=== PATIENT | female | born 1955 | race Caucasian/White ===

== ENCOUNTER 2017-09-25 15:00 | Outpatient (RCR) | payer OTHER, SELFPAY ==
--- NOTE | 2017-07-25 09:23 | HP.OTEVAL ---
Patient's Visit Information GIBSON SOTOMAYOR is a 61 year old F, referred to Occupational Therapy by HEATH GASPAR, with a diagnosis of proximal row carpectomy and PIN neurectomy R wrist. Date of Evaluation: 07/25/17 Occupational Therapist: Yenny Sahu - Subjective Subjective: Genoveva arrived and noted that she had ligament damage from injury March. She noted fell in March after tripping over grandson. She noted just throughout it was bruise waited to May to go in. In May found ligament damage and casted. She noted in June 20 had carpectomy proximal row. - Pain Right Wrist 2 Pain Intensity Range: 1, 9, 10 - ROM Forearm: suoination R 0-56, L WNL Wrist: flexion R 0-30, L 0-98; ext R 0-16, L 0-54 MP: 2nd 27-69, 3rd 34-76, 4th 24-78, 5th 21-85; L WNL PIP: 2nd -10-80, 3rd -18 -83, 4th -7-82, 5th -22-73; L WNL DIP: 2nd 0-57, 3rd 0-64, 4th -2-54, 5th -5-73; L WNL ROM Comments: radial dev R 0-5, L 0-25; uln dev R 0-17, L 0-31 - Strength Die Repairer Trimmer Dies: R 5, L 44 Lateral Pinch: R 4, L 11 Tripod Pinch: R unable L 11 Tip-to-Tip Pinch: R unable L 6 - Edema Other: slight edema t/o hand unable to see Metacarpals - Sensation Sensation Comments: sensations WFL. Denies numbness or tingling. Increased sensitivity over dorsum of hand. Further testing to occur. Sock provided to wear with splint to try and decrease rubbing which she noted is very uncomfortable over proximal and distal dorsal scar areas only. Notes scar is not very sensitivity at this time. - In-Hand Manipulation Finger to Palm Translation: Severe - Right, Normal - Left Palm to Finger Translation: Severe - Right, Normal - Left Shift: Moderate - Right, Severe - Right, Normal - Left Rotation: Moderate - Right, Severe - Right, Normal - Left - DASH-Disabilities of Arm, Shoulder& Hand DASH Sum: 121 - Goals Goal:: Genoveva to increase R premium note interest calculator clerk to about 80% or within 20 lbs of L premium note interest calculator clerk to promote increased strength, stability and fx use of R wrist and hand to return to PLOF by d/c. Goal:: Genoveva to increase R wrist ROM by 10-20 degrees to promote increased fx ROM to promote increased ability to manipulate wrist and complete ADL/IADls 4/5 trials 80% of the time by d/c. Goal:: Genoveva to have no more of 1/10 pain with/without brace (when appropriate) 4/5 trials 80% of the time to promote increased use fo R dominant ahnd to return to PLOF by d/c. Goal:: Genoveva to be mod I to complete edema management program of R wrist and hand to decreased swellign and promote ROM 4/5 trials 80% of the time of the time to promote ROM by time of d/c. Goal:: Genoveva to be mod I to complete desensitization protocol to promote increased ability to tolerate various textures e.g clothing over scar and dorsum wrist and hand without painful stimuli 4/5 trials 80% of the time to promote returning to PLOF by d/c. Goal:: Genoveva to complete correct wirst body emchanics and joint protection to promote increased alignment, decreased risk of further injury, and decreased risk of pain 4/5 trials 80% of the time by d/c. Goal:: Genoveva to be (i) to return to all ADl/IADLs including gardening technqiues 4/5 trials 80% of the time to promote ability to fx use had at PLOF by d/c. - Rehabilitation General Assessment: Pt., Genoveva, is s/p proximal row carpectomy and posterior interosseous nervectomy June. Carpectomy s/p fall resulting in ligament damage and resulting in increased pain. She noted pain has significantly decreased decreased since carpectomy but still has pain in wrist due to surgery and healing. ROM and strength significantly limited at this time. OT to address to promote returning to ADl/IADls at PLOF, increasing ROM, strength, edema management, and decreased sensitivity. Rehabilitation Potential: Good - Anticipated Interventions Anticipated Interventions: Early Active Motion, A/AAROM/PROM, Strengthening, Edema Control, Scar Care, Desensitization, Wound Care, Modalities, Orthoses, Joint Protection/Energy Conservation, Ergonomic Education, Fine Motor Coord/Luis Carlos, ADL Training, Caregiver Training, Home Program - Visit Plan Frequency: 2-3x /Week Duration: 6 Weeks TEXT: Thank you for the opportunity to evaluate your patient. For Medicare and Medicare HMO plans, please review the plan of care and approve it. It will need to be FAXED BACK to us at [phone] for Medicare purposes. Please let me know if there are questions or concerns regarding this plan of care. Physician Signature: Date:
--- NOTE | 2017-08-28 13:01 | HP.OTCOM ---
OT Communication Note 08/28/[address] HEATH GASPAR Genoveva has been diligent on attending OT sessions. She has progressed with all measurements since initial evaluation. New measurements taken and are as follows: ROM R wrist and hand flexion 0-48, ext 0-25, supination 0-60, radial dev 0-10, ulnar deviation 0-21. R hand ROM MCP 2-5th: 18-77, 28-86, 22-84, 21-89; PIP 2-5th 0-88, 0-90, 0-90, -17-92; DIP 2-5th 0-47, 0-60, 0-59, -4-80. Strength measurements are as follows: office agent R 15, L 52; lateral R 11, L 11; tripod R 6, L 15; tip pinch R 4, L 9 lbs. 9-hole pegboard test R 20.53 s, L 18.36 s. She has progressed in all measurements. Pain is manageable but still variable at this time. She is to continue to wear brace for support during work days and when lifting as strength is not able to support wrist adequately at this time. Strength is still very weak and OT working on increasing fx strength to promote stability of R UE as well as wrist and hand through individualized program in clinic and HEP for ADL/IADls. Genoveva is starting to show signs of Dupuytrens contractures at 3rd, 4th and 5th fingers. Please assess and address as needed. Sincerely, Yenny Sahu. OTR/L Contact Information
--- NOTE | 2017-09-14 17:00 | HP.OTREVAL ---
HEATH GASPAR, It has been my pleasure to treat GIBSON SOTOMAYOR over the last 17 visits for proximal row carpectomy and PIN neurectomy R wrist. Please see the progress note below for an update on the occupational therapy plan of care! Subjective: Pt. reports working taking more time as expected but going well. Noted wrist on up and up. Noted completed week of writing and slower but no pain from activities. Notes weakness is still majory issue. Objective/Function: Reassessment completed on this date. She has continued to progress with most ROM and all strengthening tasks since reassessment 08/28/17. ROM measurements are as follows: wrist flexion R 0-51, L WNL; ext R 0-29, L WFL; supination 0-63, L WNL, pronation R0-83, L WFL; R MCP 2-5th digits 23-83, 32-93, 18-94, and 20-96; PIP 2-5th 0-87, 0-89, 0-94, -18-86. Strength assessment is as follows: front office specialist R 21, L 55 lbs, lateral R 10, L 14, tripod R 6, L 17 lbs, tip pinch R 4, L 9 lbs. Completed 9 hole pegboard test with R hand in 18.62 s , L 16.49 s. Previous measurements: Measurments are as follows: ROM R wrist and hand flexion 0-48, ext 0-25, supination 0-60, radial dev 0-10, ulnar deviation 0-21. R hand ROM MCP 2-5th: 18-77, 28-86, 22-84, 21-89; PIP 2-5th 0-88, 0-90, 0-90, -17-92; DIP 2-5th 0-47, 0-60, 0-59, -4-80. Strength measurements are as follows: front office specialist R 15, L 52; lateral R 11, L 11; tripod R 6, L 15; tip pinch R 4, L 9 lbs. 9 hole pegboard test R20.53 s, L 18.36 s. Genoveva has progressed in all strengthening tasks and will continue OT at this time. Plan Frequency: 2x /Week Duration: 3 Weeks Plan: continue POC. Continue with scheduled appointments to end of september to complete strengthening. She has continued to progress with all strength and ROM tasks at this time. She will continue 2xweekly appointments for next 3 weeks. Goals - Goals Goal:: Genoveva to increase R front office specialist to about 80% or within 20 lbs of L front office specialist to promote increased strength, stability and fx use of R wrist and hand to return to PLOF by d/c. Goal:: Genoveva to increase R wrist ROM by 10-20 degrees to promote increased fx ROM to promote increased ability to manipulate wrist and complete ADL/IADls 4/5 trials 80% of the time by d/c. Goal:: Genoveva to have no more of 1/10 pain with/without brace (when appropriate) 4/5 trials 80% of the time to promote increased use fo R dominant ahnd to return to PLOF by d/c. Goal:: Genoveva to be mod I to complete edema management program of R wrist and hand to decreased swellign and promote ROM 4/5 trials 80% of the time of the time to promote ROM by time of d/c. Goal:: Genoveva to be mod I to complete desensitization protocol to promote increased ability to tolerate various textures e.g clothing over scar and dorsum wrist and hand without painful stimuli 4/5 trials 80% of the time to promote returning to PLOF by d/c. Goal:: Genoveva to complete correct wirst body emchanics and joint protection to promote increased alignment, decreased risk of further injury, and decreased risk of pain 4/5 trials 80% of the time by d/c. Goal:: Genoveva to be (i) to return to all ADl/IADLs including gardening technqiues 4/5 trials 80% of the time to promote ability to fx use had at PLOF by d/c. Anticipated Interventions Anticipated Interventions: Early Active Motion, A/AAROM/PROM, Strengthening, Edema Control, Scar Care, Desensitization, Wound Care, Modalities, Orthoses, Joint Protection/Energy Conservation, Ergonomic Education, Fine Motor Coord/Luis Carlos, ADL Training, Caregiver Training, Home Program Please do not hesitate to contact me at [phone] by phone or if you have questions or concerns regarding this new plan of care! Sincerely, Yneny Sahu
--- NOTE | 2017-10-26 14:26 | HP.OTDCNRP_ITS ---
HP - Discharge Summary - Patient Information GIBSON SOTOMAYOR was seen in my office for initial evaluation on 07/25/17. The following Plan of Care was established for this patient: Initial Frequency: 2x /Week Initial Duration: 3 Weeks Plan: continue POC for 3x sessions. - Anticipated Interventions Anticipated Interventions: Early Active Motion, A/AAROM/PROM, Strengthening, Edema Control, Scar Care, Desensitization, Wound Care, Modalities, Orthoses, Joint Protection/Energy Conservation, Ergonomic Education, Fine Motor Coord/ Luis Carlos, ADL Training, Caregiver Training, Home Program This patient was last seen in our office 09/25/17. Pertinent comments regarding their Occupational therapy will appear below: Genoveva was to continue 3 x more sessions but canceled due to scheduling conflicts and she will be d/c'd at this time. Last measurements taken 09/25 are as follows:ROM of R wrist R flexion R 0-54, L WFL; ext R 0-27, L WFL; sup R 0-57 , L WFL; pro R 0-80, L WFL. Strength measurements as follows: manager application R 19, L WFL; lateral R 7, L WFL: tripod R 5, L WFL: pincer R 4, L WFL. At this point I will be discontinuing this patient from occupational therapy. I would be happy to see this patient again in the future if found appropriate by the physician. Thank you! Yenny Sahu
== END 2017-09-25 19:00 | disposition home or self-care (01) ==
LOC: OT 15:00
DX: M25.331 Other instability, right wrist (principal); Z98.890 Other specified postprocedural states
CPT/HCPCS: 97035; 97110; 97140; 97166; 97530; 97760

== ENCOUNTER 2018-09-12 22:32 | Inpatient (IN) | payer MEDICARE, OTHER, SELFPAY ==
[2018-09-12 22:34] VITALS: BP 218/118; PULSE 72; RESP 18; TEMP 36.8; O2SAT 97; BMI 41.3
--- NOTE | 2018-09-12 23:13 | CT_ITS ---
HISTORY: RT SIDED LOW ABDOMEN PAIN,NAUSEA AND VOMITING SINCE YESTERDAYHX:DIVERTICULITIS,APPENDECTOMY,CHOLECYSTECTOMY,HYSTERECTOMY ADDITIONAL HISTORY: None provided. TECHNIQUE: CT images were obtained of the abdomen and pelvis without IV contrast. Enteric contrast was not given. Number of images including paperwork: 530. A radiation dose optimization technique was used for this scan. COMPARISON: 11/02/2012 FINDINGS: Evaluation of the abdominopelvic organs is limited in the absence of contrast. LOWER THORAX: No consolidation or pleural effusion. Small sliding hiatal hernia. LIVER: No concerning focal lesion. Decreased hepatic density compatible with steatosis. GALLBLADDER: Cholecystectomy. BILE DUCTS: No significant biliary dilatation. SPLEEN: Unremarkable. PANCREAS: 2.1 cm low density lesion in the pancreatic head. Pancreas is otherwise moderately to severely atrophic. This is not a evidence on the previous exam. ADRENAL GLANDS: Unremarkable. KIDNEYS/URETERS: Mildly atrophic. Parapelvic renal cysts. Mild right hydronephrosis secondary to a 2 mm distal ureteral calculus within 1 cm of the ureterovesical junction. 1-2 mm nonobstructing left renal calculus. BOWEL: No bowel obstruction. No significant bowel wall thickening. No localized inflammation. Colonic diverticulosis. APPENDIX: No evidence of appendicitis. FREE FLUID: No significant free fluid. FREE AIR: None. LYMPH NODES: No pathologic appearing adenopathy. PERITONEUM, RETROPERITONEUM AND MESENTERY: Otherwise unremarkable. VASCULATURE: Atherosclerotic calcification. ABDOMINAL WALL: Unremarkable. PELVIS: Decompressed bladder. Hysterectomy. No pelvic masses. OSSEOUS AND SOFT TISSUE STRUCTURES: No acute skeletal findings. Degenerative changes. CT/Abdomen/Pelvis without Cont IMPRESSION: 1. Obstructing right distal ureteral calculus with mild hydronephrosis. 2. Left renal calculus. 3. Low-density lesion in the pancreatic head may be related to cystic neoplasm, pseudocyst or cyst. Individualized dose optimization techniques were used for this CT. at 0015 Reported and signed by: Milana Knapp MD Electronically Signed: Milana Knapp MD at 0:15 EDT Tel , Service support ,
--- NOTE | 2018-09-12 23:16 | ED.DCSUM_ITS ---
History of Present Illness Chief Complaint: Abd Pain Informant: Patient Onset: Yesterday Narrative: Intermittent right-sided abdominal pain since yesterday afternoon. Symptoms returned this afternoon has progressed. Nausea vomiting x5 with no hematemesis. No diarrhea. No urinary symptoms. History of appendectomy and cholecystectomy. Reports similar symptoms with diverticulitis 4 years ago. She had a follow-up colonoscopy by Dr. Putnam reporting diverticulosis and one polypectomy. Reports it was benign. Currently nauseated. Allergies to clarithromycin sulfa both causing hives. History of hypertension on medications, no missed doses. No headache, visual changes, chest pains or shortness of breath. Prior similar symptoms: Yes Past Medical History - Allergies and Home Meds Allergies/Adverse Reactions: Allergies clarithromycin [From Biaxin] Allergy (Verified 09/12/18 22:36) Hives Sulfa (Sulfonamide Antibiotics) Allergy (Verified 09/12/18 22:36) Hives Primary Care Physician: Erickson Khalil MD [Primary Care Provider] - Smoking Status: Never smoker Review of Systems General: Reports: Chills. Denies: Fever, Sweats Eyes: Denies: Visual changes - bilaterally, Diplopia ENT: Denies: Rhinorrhea, Sore throat Cardiovascular: Denies: Chest pain, Palpitations Respiratory: Denies: Dyspnea, Cough, Dyspnea on exertion Gastrointestinal: Reports: Abdominal pain, Nausea, Vomiting. Denies: Diarrhea, Melena, Hematochezia Genitourinary: Denies: Dysuria, Hematuria, Frequency Musculoskeletal: Denies: Back pain, Extremity Pain Skin: Denies: Rash, Wounds Neurological: Denies: Headache, Weakness, Numbness Physical Exam Vital Signs/Narrative: Vital Signs Temp Pulse Resp BP Pulse Ox 09/12/18 22:34 98.2 F 72 18 218/118 H 97 Inital Vital Signs reviewed: Yes General: Well nourished, Well developed, No Acute Distress Head: Normocephalic, Atraumatic Eyes: Perrl, EOMI ENT: Moist mucous membranes, No rhinorrhea Neck: Supple, Nontender Cardiovascular: Regular rate, Regular rhythm, No murmurs Respiratory: No distress, CTA bilaterally, Chest nontender Abdomen: Soft, Nondistended, Normal bowel sounds, - - Mild right lower quadrant tenderness without guarding or rebound. No suprapubic or left lower quadrant tenderness. Back: Nontender, Normal Inspection Extremities: Nontender, No edema Skin: Normal color, No rash Neurological: Alert, Oriented x3, Cranial nerves II-XII grossly intact, Normal Strength, Normal Sensation Psychological: Normal affect, Normal Mood Diagnostic/Tx/Re-eval Abnormal Lab Results 09/12/18 09/12/18 09/13/18 23:25 23:25 00:35 WBC 5.8 RBC 4.39 Hgb 13.0 Hct 39.3 MCV 89.5 MCH 29.6 MCHC 33.1 RDW Std Deviation 48.0 H RDW Coeff of Matheus 14.6 Plt Count 217 MPV 9.1 Immature Gran % (Auto) 0.700 Neut % (Auto) 65.4 Lymph % (Auto) 19.9 [place] % (Auto) 9.5 Eos % (Auto) 3.6 Baso % (Auto) 0.9 Absolute Neuts (auto) 3.8 Absolute Lymphs (auto) 1.16 Nucleated RBC % 0 Sodium 141 Potassium 4.0 Chloride 109 H Carbon Dioxide 26.0 Anion Gap 6 BUN 26 H Creatinine 1.61 H Estim Creat Clear Calc 36.89 Est GFR (MDRD) Af Amer 41 L Est GFR (MDRD) Non-Af 34 L BUN/Creatinine Ratio 16.1 Glucose 125 H Calcium 8.9 Urine Color Yellow Urine Clarity Sl. Cloudy Urine pH 6.0 Ur Specific [place] 1.025 Urine Protein 30 H Urine Glucose (UA) Normal Urine Ketones 5 H Urine Occult Blood 150 H Urine Nitrite Positive H Urine Bilirubin Negative Urine Urobilinogen Normal Ur Leukocyte Esterase 500 H Urine RBC Cancelled Urine WBC Cancelled Ur Squamous Epith Cells Cancelled Ur Transition Epith Cell Cancelled Ur Renal Epithelial Cell Cancelled Calcium Oxalate Crystal Cancelled Uric Acid Crystals Cancelled Triple Phos Crystals Cancelled Other Crystals Cancelled Amorphous Sediment Cancelled Urine Bacteria Cancelled Hyaline Casts Cancelled Fine Granular Casts Cancelled Coarse Granular Casts Cancelled Waxy Casts Cancelled RBC Casts Cancelled WBC Casts Cancelled Urine Mucus Cancelled Urine Trichomonas Cancelled Urine Yeast Cancelled Clinical Impression(s) from Imaging Studies Abdomen/Pelvis CT 09/12/18 23:13 IMPRESSION: 1. Obstructing right distal ureteral calculus with mild hydronephrosis. 2. Left renal calculus. 3. Low-density lesion in the pancreatic head may be related to cystic neoplasm, pseudocyst or cyst. Individualized dose optimization techniques were used for this CT. at 0015 Reported and signed by: Milana Knapp MD Electronically Signed: Milana Knapp MD at 0:15 EDT Tel , Service support , - Medical Decision Making Patient initial elevated blood pressure no headache symptoms no chest pains or shortness of breath. She is a nonsurgical abdomen, right lower quadrant tenderness with history of diverticulitis. Work-up initiated. Treated with initial morphine, Zofran, IV fluids. Additional morphine required in the interim due to reporting initial dose did not work. Work-up with findings with no colitis however notes of 2 mm right distal obstructing ureteral stone. Urine was added with findings of infection. Culture sent started on Rocephin. White count normal. Creatinine up to 1.6, previously 1.1 from labs from 2012. Evaluation pain returned with dose with Dilaudid 1 mg along with Phenergan 6.25 mg and continue IV fluids. Nontoxic blood pressure is stable. She does not meet sepsis criteria. I spoke with on-call urologist Dr. Alston, will admit to her service keeping n.p.o. for possible intervention in the morning. Patient updated. ED Disposition - Plan for ED Patient: Disposition: Acute Care Hospital [facility] Diagnosis: Urolithiasis, Urinary tract infection, Acute kidney injury Referrals: Erickson Khalil MD [Primary Care Provider] -
[2018-09-12 23:27] VITALS: BP 150/64
[2018-09-12] MEDS: Morphine 4 MG/ML Syringe IV (23:27)
[2018-09-12] MEDS: Ondansetron 4 MG/2 ML Vial IV (23:28)
[2018-09-12 23:31] LABS: Absolute Lymphocyte Count 1.16 X10^3/uL (0.83-4.51); Absolute Neutrophil Count 3.8 X10^3/uL (2.0-7.7); Basophil# 0.05 X10^3/uL; Basophil% 0.9 % (0-1); Eosinophil# 0.21 X10^3/uL; Eosinophils% 3.6 % (0-5); Hematocrit 39.3 % (37-47); Lymphocyte # 1.16 X10^3/ul (4.0); Lymphocyte % 19.9 % (19-41); Mean Corp Hgb Conc 33.1 g/dL (32-36); Mean Corpuscular Hgb 29.6 pg (27.0-32.0); Mean Corpuscular Volume 89.5 fL (81-99); Mean Platelet Vol. 9.1 fl (6.2-12.0); Monocyte# 0.55 X10^3/uL; Monocyte% 9.5 % (0-10); NRBC Flagged by Analyzer 0 % (0-5); Neutrophil # 3.81 X10^3/uL (2.7-7.7); Neutrophil % 65.4 % (47-70); Platelet Count 217 K/mm3 (150-450); RBC Distribution Width CV 14.6 % (11.6-14.6); Red Blood Count 4.39 M/mm3 (4.2-5.4); White Blood Count 5.8 K/mm3 (4.4-11.0)
[2018-09-12 23:43] LABS: Anion Gap 6 (5-15); BUN 26 mg/dL (7-18); BUN/Creat Ratio 16.1 RATIO (10-20); Calcium,Total 8.9 mg/dL (8.5-10.1); Chloride 109 mmol/L (98-107); Creatinine, Serum 1.61 mg/dL (0.55-1.02); EST Glomerular Filtration Rate 34 mL/min (>60); Est Glom Filt Rate - Afr Amer 41 mL/min (>60); Estimated Creatinine Clearance 36.89 ml/min; Glucose 125 mg/dL (74-106); Sodium Level 141 mmol/L (136-145)
[2018-09-13] VITALS (8 sets, daily range): BP systolic 104–158; BP diastolic 49–73; PULSE 65–82; RESP 16–18; TEMP 36.5–37.2; O2SAT 95–99; BMI 36.0
[2018-09-13] MEDS: morphine 10 MG/ML Syringe IV (00:04)
--- NOTE | 2018-09-13 00:43 | ED.RN ---
very small amount of urine sent to lab. pt not sure if she is retaining or no urine.
[2018-09-13 00:49] LABS: Color, Urine Yellow (Yellow); Glucose, Dipstick Normal (Normal); Ketone-Dipstick 5 mg/dl (Negative); Leukocyte Esterase-Dipstick 500 /ul (Negative); Nitrite-Dipstick Positive (Negative); Occult Blood-Urine 150 /ul (Negative); Protein-Dipstick 30 mg/dl (Negative); Specific Gravity, Urine 1.025 (1.002-1.030); Urine Bilirubin Dipstick Negative (Negative); Urine Clarity Sl. Cloudy (Clear); Urine Urobilinogen Normal (Normal)
[2018-09-13] MEDS: proMETHazine 25 MG/ML Syringe 6.25 MG IV (01:28)
[2018-09-13] MEDS: HYDROmorphone 1 MG/ML Syringe IV (01:31)
[2018-09-13] MEDS: 0.9% Normal Saline 1,000 ML 999 ML IV (01:31)
[2018-09-13] MEDS: Ceftriaxone 1 GM/50 ML BAG IV (01:45)
[2018-09-13] MEDS: Dext 5%-0.45% NS 1,000 ML 125 ML IV ×3 (03:00→20:08)
[2018-09-13] MEDS: Tamsulosin HCl 0.4 MG Capsule PO ×2 (03:01→16:37)
[2018-09-13] MEDS: HYDROmorphone 0.5 MG/0.5 ML SYRINGE IV ×3 (07:39→16:34)
[2018-09-13] MEDS: Ondansetron 4 MG/2 ML Vial IV ×2 (07:39→16:34)
[2018-09-13] MEDS: Metoprolol(XL)Succ 100 MG Tablet PO (07:42)
--- NOTE | 2018-09-13 15:53 | PCM.HP.STD ---
Problem List (1) Pancreatic abnormality Status: Acute (2) Nausea & vomiting Status: Acute (3) Urolithiasis Status: Acute (4) Urinary tract infection Status: Acute (5) Acute kidney injury Status: Acute History of Present Illness Date of Admission: 09/13/18 Chief Complaint: nausea, vomiting, abdominal pain The patient is a 62 year old F who reports approximately 5 days of nausea and intermittent vomiting at home. It worsened yesterday afternoon and caused her to present to the emergency department. This is not been associated with fever, chills, flank pain, lower urinary tract symptoms including dysuria, hematuria increased urgency, frequency, retention. She does not have a history of urolithiasis. She has had a cholecystectomy in the past. She was concerned that the pain she experienced which is in the center of her abdomen down into the right lower quadrant might be related to diverticulitis that she has had in the past. Since admission, her pain continues. Her nausea continues. She denies diarrhea, constipation, lower extremity pain or swelling. She denies voiding complaints today. Past Medical History Medical History: Medical History (Last Reviewed 09/13/18 @ 15:56 by Faye Alston MD) Hypercholesteremia (Acute) E78.00 Overactive bladder (Acute) N32.81 Hypertension (Chronic) I10 Allergies clarithromycin [From Biaxin] Allergy (Verified 09/12/18 22:36) Hives Sulfa (Sulfonamide Antibiotics) Allergy (Verified 09/12/18 22:36) Hives Home Medications: Ambulatory Orders Medication Instructions Recorded Fluoxetine HCl [Prozac] 20 mg PO DAILY 09/12/18 Losartan/Hydrochlorothiazide 1 ea PO DAILY 09/12/18 [Losartan-Hctz 50-12.5 mg Tab] Metoprolol Succinate [Toprol Xl] 100 mg PO DAILY 09/12/18 Oxybutynin Chloride [Ditropan Xl] 10 mg PO DAILY 09/12/18 Surgical History: appendectomy, cholecystectomy, hysterectomy, total knee arthroplasty, - - wrist surgery [employer] History: - - no history cancers Lives: Spouse/ Significant Other Smoking Status: Never smoker Review of Systems Constitutional: Reports: Anorexia Eyes: Denies: Vision Change HEENT: Denies: Visual Changes Cardiovascular: Denies: Chest Pain Respiratory: Denies: Shortness of Breath Gastrointestinal: Reports: Abdominal Pain, Nausea, Vomiting Gynecological: Denies: Breast symptoms Musculoskeletal: Denies: Muscle pain Endocrine: Denies: Change in Body Habitus VTE Information - Inpt Only VTE Present on Admission: Yes VTE Mechan Device Prophylaxis: SCD's VTE Pharm Prophylaxis ordered?: Yes Patient Problems: Active and Suspected Problems Urolithiasis (Acute) Urinary tract infection (Acute) Acute kidney injury (Acute) Pancreatic abnormality (Acute) Nausea & vomiting (Acute) - Physical Exam General: Alert, Oriented x3, Cooperative, Well developed, Well nourished HEENT: Atraumatic, Normocephalic Oral: Dry Mucosa Neck: Supple, Trachea Midline Lungs: Normal air movement Cardiovascular: Regular rate Abdomen: Soft, Non-Distended, Obese, Tender Extremities: No Calf Tenderness, - - SCD's in place Skin: No rashes Musculoskeletal: No Muscle Wasting Neurological: Cranial nerves II-XII grossly intact Psych/Mental Status: Normal Affect, Alert and oriented to time, place, person, mood and affect Vital Signs Temp Pulse Resp BP Pulse Ox 98.6 F 82 16 105/49 L 97 09/13/18 14:47 09/13/18 14:47 09/13/18 14:47 09/13/18 14:47 09/13/18 14:47 Oxygen Delivery Method Room Air Weight: 110.7 kg Body Mass Index (BMI) 36.0 Intake and Output for Last 24 Hours 09/11/18 09/12/18 09/13/18 23:59 23:59 23:59 Intake Total 1069 / 1069 Output Total 100 / 100 Balance 969 / 969 Laboratory Tests Past 24 Hrs 09/12/18 09/12/18 09/13/18 23:25 23:25 00:35 WBC 5.8 RBC 4.39 Hgb 13.0 Hct 39.3 MCV 89.5 MCH 29.6 MCHC 33.1 RDW Std Deviation 48.0 H RDW Coeff of Matheus 14.6 Plt Count 217 MPV 9.1 Immature Gran % (Auto) 0.700 Neut % (Auto) 65.4 Lymph % (Auto) 19.9 [place] % (Auto) 9.5 Eos % (Auto) 3.6 Baso % (Auto) 0.9 Absolute Neuts (auto) 3.8 Absolute Lymphs (auto) 1.16 Nucleated RBC % 0 Sodium 141 Potassium 4.0 Chloride 109 H Carbon Dioxide 26.0 Anion Gap 6 BUN 26 H Creatinine 1.61 H Estim Creat Clear Calc 36.89 Est GFR (MDRD) Af Amer 41 L Est GFR (MDRD) Non-Af 34 L BUN/Creatinine Ratio 16.1 Glucose 125 H Calcium 8.9 Urine Color Yellow Urine Clarity Sl. Cloudy Urine pH 6.0 Ur Specific [place] 1.025 Urine Protein 30 H Urine Glucose (UA) Normal Urine Ketones 5 H Urine Occult Blood 150 H Urine Nitrite Positive H Urine Bilirubin Negative Urine Urobilinogen Normal Ur Leukocyte Esterase 500 H Urine RBC Cancelled Urine WBC Cancelled Ur Squamous Epith Cells Cancelled Ur Transition Epith Cell Cancelled Ur Renal Epithelial Cell Cancelled Calcium Oxalate Crystal Cancelled Uric Acid Crystals Cancelled Triple Phos Crystals Cancelled Other Crystals Cancelled Amorphous Sediment Cancelled Urine Bacteria Cancelled Hyaline Casts Cancelled Fine Granular Casts Cancelled Coarse Granular Casts Cancelled Waxy Casts Cancelled RBC Casts Cancelled WBC Casts Cancelled Urine Mucus Cancelled Urine Trichomonas Cancelled Urine Yeast Cancelled Assessment/Plan All Active Problems Urolithiasis (Acute) Urinary tract infection (Acute) Acute kidney injury (Acute) Pancreatic abnormality (Acute) Nausea & vomiting (Acute) I spoke with the patient and have already called and consulted the hospitalist group and spoke with Dr. Chávez. I am concerned after reviewing her imaging and the report from the CT scan, in addition to examining and speaking with the patient. I feel that her findings may more likely be attributed to the issues with her pancreas than to a ureteral calculus. LFTs, amylase, lipase, am labs Further imaging of the abdomen, including possible MRI to be ordered per medicine or program evaluation consultant team Continue intravenous fluid administration Pain and nausea control, switch to Phenergan Will follow up on urine culture and continue antibiotics until that has returned Continue Flomax for now. Appreciate program evaluation consultant input.
--- NOTE | 2018-09-13 16:15 | PN_ITS ---
Patient Problems: Active and Suspected Problems (Last Reviewed 09/13/18 @ 15:56 by Faye Alston MD) Urolithiasis (Acute) Urinary tract infection (Acute) Acute kidney injury (Acute) Pancreatic abnormality (Acute) Nausea & vomiting (Acute) Hypercholesteremia (Acute) Overactive bladder (Acute) Subjective: Patient is a 62-year-old female who was admitted through the ED in the early hours of 09/13/2018 with a complaint of 5-day history of nausea and intermittent vomiting at home with associated right lower quadrant pain. She described pain is very severe and that was similar to when she had diverticulitis. She denied any fever, any chills, any frequency of urination, urgency or dysuria. She also had no nausea, vomiting or diarrhea. She has never had any kidney stones before. She was admitted to the service of urology on account of suspicion of kidney stones. She was reviewed by urology today and they felt that she did not have any significant kidney stones to be causing symptoms. Hospitalist service was consulted to help with medical management on account of CT of the abdomen which showed a suspicious lesion in the pancreas. Patient seen and examined. She had no complaints. Abdominal pain had resolved. She denied any fever, any chills, any palpitations or dizziness, any chest pain, any diarrhea or vomiting. Abdominal pain had not recurred. Review of systems was otherwise negative. She denies any history of ever smoking or drinking. Vitals/I&O's: Vital Signs Temp Pulse Resp BP Pulse Ox 98.6 F 82 16 105/49 L 97 09/13/18 14:47 09/13/18 14:47 09/13/18 14:47 09/13/18 14:47 09/13/18 14:47 Oxygen Delivery Method Room Air Weight: 244 lb 0.827 oz Body Mass Index (BMI) 36.0 Intake and Output for Last 24 Hours 09/11/18 09/12/18 09/13/18 23:59 23:59 23:59 Intake Total 1069 / 1069 Output Total 100 / 100 Balance 969 / 969 General: Alert, Oriented x3, Cooperative, No apparent distress HEENT: Atraumatic, PERRLA, EOMI, Normocephalic Oral: Moist Mucosa Neck: Supple, No JVD, Negative Carotid Bruits Lungs: Clear to auscultation, Normal air movement, No rhonchi, No wheeze Cardiovascular: Regular rate, Regular Rhythm, Normal S1, Normal S2, No murmurs Abdomen: Bowel Sounds Present, Soft, Non Tender, Obese Extremities: No clubbing, No cyanosis, No edema, Capillary Refill Less than 3 Seconds Skin: No rashes, No breakdown Musculoskeletal: No Tenderness to Palpation of Joints or Extremities Lymphatic: No Cervical, Supraclavicular, or Inguinal Adenopathy Neurological: Cranial nerves II-XII grossly intact, Neuro grossly intact, Motor Exam 5/5 strength throughout Psych/Mental Status: Normal Affect, Appropriate, Alert and oriented to time, place, person, mood and affect Laboratory Results 09/12/18 23:25: WBC 5.8, RBC 4.39, Hgb 13.0, Hct 39.3, MCV 89.5, MCH 29.6, MCHC 33.1, RDW Std Deviation 48.0 H, RDW Coeff of Matheus 14.6, Plt Count 217, MPV 9.1, Immature Gran % (Auto) 0.700, Neut % (Auto) 65.4, Lymph % (Auto) 19.9, Caroline % (Auto) 9.5, Eos % (Auto) 3.6, Baso % (Auto) 0.9, Absolute Neuts (auto) 3.8, Absolute Lymphs (auto) 1.16, Nucleated RBC % 0 09/12/18 23:25: Sodium 141, Potassium 4.0, Chloride 109 H, Carbon Dioxide 26.0, Anion Gap 6, BUN 26 H, Creatinine 1.61 H, Estim Creat Clear Calc 36.89, Est GFR (MDRD) Af Amer 41 L, Est GFR (MDRD) Non-Af 34 L, BUN/Creatinine Ratio 16.1, Glucose 125 H, Calcium 8.9 09/13/18 00:35: Urine Color Yellow, Urine Clarity Sl. Cloudy, Urine pH 6.0, Ur Specific [place] 1.025, Urine Protein 30 H, Urine Glucose (UA) Normal, Urine Ketones 5 H, Urine Occult Blood 150 H, Urine Nitrite Positive H, Urine Bilirubin Negative, Urine Urobilinogen Normal, Ur Leukocyte Esterase 500 H, Urine RBC Cancelled, Urine WBC Cancelled, Ur Squamous Epith Cells Cancelled, Ur Transition Epith Cell Cancelled, Ur Renal Epithelial Cell Cancelled, Calcium Oxalate Crystal Cancelled, Uric Acid Crystals Cancelled, Triple Phos Crystals Cancelled, Other Crystals Cancelled, Amorphous Sediment Cancelled, Urine Bacteria Cancelled, Hyaline Casts Cancelled, Fine Granular Casts Cancelled, Coarse Granular Casts Cancelled, Waxy Casts Cancelled, RBC Casts Cancelled, WBC Casts Cancelled, Urine Mucus Cancelled, Urine Trichomonas Cancelled, Urine Yeast Cancelled Diagnostic Data Abdomen/Pelvis CT 09/12/18 23:13 IMPRESSION: 1. Obstructing right distal ureteral calculus with mild hydronephrosis. 2. Left renal calculus. 3. Low-density lesion in the pancreatic head may be related to cystic neoplasm, pseudocyst or cyst. Individualized dose optimization techniques were used for this CT. at 0015 Reported and signed by: Milana Knapp MD Electronically Signed: Milana Knapp MD at 0:15 EDT Tel , Service support , Current Medications Enoxaparin Sodium (Lovenox) 40 mg SC DAILY@0600 [facility] Fluoxetine HCl (Prozac) 20 mg PO DAILY [facility] HCTZ/Losartan Potassium (Hyzaar 50-12.5 Tablet) tab PO DAILY [facility] Hydromorphone HCl (Dilaudid Inj) 0.5 mg IV Q4H PRN PRN PRN Reason: SEVERE PAIN (6-10/10) Last Admin: 09/13/18 11:36 Dose: 0.5 mg Documented by: Dextrose/Sodium Chloride () 1,000 mls @ 125 mls/hr IV .Q8H [facility] Last Admin: 09/13/18 11:36 Dose: 125 mls/hr Documented by: Ceftriaxone Sodium (Rocephin) 1 gm in 50 mls @ 100 mls/hr IV Q24 [facility] Stop: 09/16/18 10:01 Metoprolol Succinate (Toprol Xl (Beta Danni)) 100 mg PO DAILY [facility] Last Admin: 09/13/18 07:42 Dose: 100 mg Documented by: Metoprolol Succinate (Toprol Xl (Beta Danni)) 100 mg PO DAILY [facility] Non-Formulary Medication (Oxybutynin Chloride [Ditropan Xl]) 10 mg PO DAILY [facility] Ondansetron HCl (Zofran) 4 mg IV Q8H PRN PRN PRN Reason: NAUSEA/VOMITING Last Admin: 09/13/18 07:39 Dose: 4 mg Documented by: Promethazine HCl (Phenergan) 12.5 mg IV Q6H PRN PRN PRN Reason: NAUSEA/VOMITING Sodium Chloride () 10 - 40 ml IV UD PRN PRN Reason: SALINE FLUSH Tamsulosin HCl (Flomax) 0.4 mg PO DAILY@1730 [facility] Last Admin: 09/13/18 03:01 Dose: 0.4 mg Documented by: Medical Necessity - Tobacco Use Smoking Status: Never smoker Assessment/Plan All Active Problems (Last Reviewed 09/13/18 @ 15:56 by Faye Alston MD) Urolithiasis (Acute) Urinary tract infection (Acute) Acute kidney injury (Acute) Pancreatic abnormality (Acute) Nausea & vomiting (Acute) Hypercholesteremia (Acute) Overactive bladder (Acute) [age]-year-old female admitted with complaint of abdominal pain. 1. Right lower quadrant abdominal pain of unclear etiology * abdominal pain has now resolved at time of review * CT abdomen showed obstructing right distal ureteral calculus with mild hydronephrosis,a nd left renal calculus as well as a low density leison in pancreatic head which may be related to cystic neoplasm, pseudocyst or cyst * urology reviewed patient and dont think her symptoms are due to the kidney stones * location of pain also make it less likely to be due to pancreatic lesion * will get MRCP tomorrow to delineate pancreatic mass further. further management will be predicated on MRCP findings * keep NPO as per urology * coninue hydration with IVF; continue flomax * on IV phenergan and IV Dilaudid for pain * continue IV ceftriaxone per urology. * urine culture pending 2. Hypertension: On metoprolol and hydrochlorothiazide. Will hold hydrochlorothiazide for now in light of kidney stone. 3. Depression: On Prozac DVT prophylaxis: Lovenox Thank you for the courtesy of the consult. We will continue to follow with you. Code Visit Inpatient E&M: 19570 Subs Hosp L3
[2018-09-13 16:35] LABS: AST(SGOT) 15 U/L (15-37); Alanine Aminotransfer ALT/SGPT 21 U/L (13-56); Albumin, Serum 3.5 g/dL (3.2-5.0); Alkaline Phosphatase 108 U/L (45-117); Amylase 39 U/L (25-115); Bilirubin, Direct 0.13 mg/dL (0.00-0.30); Globulin 3.3 g/dL (2.2-4.2); Lipase 245 U/L (73-393); Protein, Total 6.8 g/dL (6.4-8.2)
[2018-09-14 02:36] VITALS: BP 110/56; PULSE 69; RESP 18; TEMP 37; O2SAT 98
[2018-09-14] MEDS: Dext 5%-0.45% NS 1,000 ML 125 ML IV (04:15)
--- NOTE | 2018-09-14 05:55 | MRI_ITS ---
STUDY: MR CHOLANGIOPANCREATOGRAPHY (MRCP) REASON FOR EXAM: Female, [address], evaluate pancreatic mass TECHNIQUE: Standard MRCP technique was utilized. COMPARISON: CT abdomen and pelvis 09/12/2018. FINDINGS: Gall Bladder: Gall bladder is surgically absent. Cystic duct: Normal with no demonstrated fixed filling defect. Intrahepatic ducts: Normal visualized intrahepatic ducts with no demonstrated fixed filling defect, dilation or stricture. Common hepatic duct: Normal with no demonstrated fixed filling defect, dilation or stricture. Common bile duct: Normal with no demonstrated fixed filling defect, dilation or stricture. Pancreas: There is no pancreatic duct dilatation. There are multiple, scattered pancreatic cysts , the majority of these are subcentimeter and some appear to communicate with the main pancreatic duct. There is a pancreatic head cyst measuring 2.2 x 2.1 cm. There is moderate atrophy of the pancreatic parenchyma. There is a small 1.1 cm hepatic dome cyst. There are bilateral renal parapelvic cysts. There are trace bilateral pleural effusions. MRI/MRCP Abdomen without Contrast IMPRESSION: 1. Multiple, scattered pancreatic cysts, the majority of these are subcentimeter and some appear to communicate with the main pancreatic duct consistent with IPMN. 2. Pancreatic head cyst measures 2.2 x 2.1 cm, this does not definitely communicate with the main pancreatic duct. Differential diagnosis includes pseudocyst versus cystic neoplasm. Electronically Signed: Prasanna Razo, at 10:24 EDT Tel , Service support ,
[2018-09-14] MEDS: Enoxaparin 40 MG/0.4 ML Syringe SC (06:20)
--- NOTE | 2018-09-14 07:31 | PN_ITS ---
Subjective: Patient was seen and examined. She denied any abdominal pain. She underwent MRCP that showed multiple pancreatic pseudocysts. Denied any nausea or vomiting. Tolerated a diet. Objective: Physical exam: General: Alert, Oriented x3, Cooperative, No apparent distress HEENT: Atraumatic, PERRLA, EOMI, Normocephalic Oral: Moist Mucosa Neck: Supple, No JVD, Negative Carotid Bruits Lungs: Clear to auscultation, Normal air movement, No rhonchi, No wheeze Cardiovascular: Regular rate, Regular Rhythm, Normal S1, Normal S2, No murmurs Abdomen: Bowel Sounds Present, Soft, Non Tender, Obese Extremities: No clubbing, No cyanosis, No edema, Capillary Refill Less than 3 Seconds Skin: No rashes, No breakdown Musculoskeletal: No Tenderness to Palpation of Joints or Extremities Lymphatic: No Cervical, Supraclavicular, or Inguinal Adenopathy Neurological: Cranial nerves II-XII grossly intact, Neuro grossly intact, Motor Exam 5/5 strength throughout Psych/Mental Status: Normal Affect, Appropriate, Alert and oriented to time, place, person, mood and affect Vitals/I&O's: Vital Signs Temp Pulse Resp BP Pulse Ox 98.6 F 69 18 110/56 L 98 09/14/18 02:36 09/14/18 02:36 09/14/18 02:36 09/14/18 02:36 09/14/18 02:36 Oxygen Delivery Method Room Air Weight: 110.7 kg Body Mass Index (BMI) 36.0 Intake and Output for Last 24 Hours 09/12/18 09/13/18 09/14/18 23:59 23:59 23:59 Intake Total 1789 / 2610 1576 / 1576 Output Total 450 / 1000 1750 / 1750 Balance 1339 / 1610 -174 / -174 Laboratory Results 09/12/18 23:25: Total Bilirubin 0.50, Direct Bilirubin 0.13, AST 15, ALT 21, Alkaline Phosphatase 108, Total Protein 6.8, Albumin 3.5, Globulin 3.3, Amylase 39, Lipase 245 Current Medications Enoxaparin Sodium (Lovenox) 40 mg SC DAILY@0600 [facility] Last Admin: 09/14/18 06:20 Dose: 40 mg Documented by: Fluoxetine HCl (Prozac) 20 mg PO DAILY [facility] Hydrochlorothiazide () 12.5 mg PO DAILY [facility] Hydromorphone HCl (Dilaudid Inj) 0.5 mg IV Q4H PRN PRN PRN Reason: SEVERE PAIN (6-10/10) Last Admin: 09/13/18 16:34 Dose: 0.5 mg Documented by: Dextrose/Sodium Chloride () 1,000 mls @ 125 mls/hr IV .Q8H [facility] Last Admin: 09/14/18 04:15 Dose: 125 mls/hr Documented by: Ceftriaxone Sodium (Rocephin) 1 gm in 50 mls @ 100 mls/hr IV Q24 [facility] Stop: 09/16/18 10:01 Losartan Potassium (Cozaar) 50 mg PO DAILY [facility] Metoprolol Succinate (Toprol Xl (Beta Danni)) 100 mg PO DAILY [facility] Last Admin: 09/13/18 07:42 Dose: 100 mg Documented by: Ondansetron HCl (Zofran) 4 mg IV Q8H PRN PRN PRN Reason: NAUSEA/VOMITING Last Admin: 09/13/18 16:34 Dose: 4 mg Documented by: Promethazine HCl (Phenergan) 12.5 mg IV Q6H PRN PRN PRN Reason: NAUSEA/VOMITING Sodium Chloride () 10 - 40 ml IV UD PRN PRN Reason: SALINE FLUSH Tamsulosin HCl (Flomax) 0.4 mg PO DAILY@1730 [facility] Last Admin: 09/13/18 16:37 Dose: 0.4 mg Documented by: Tolterodine Tartrate (Detrol La) 4 mg PO DAILY [facility] Medical Necessity - Tobacco Use Smoking Status: Never smoker Assessment/Plan All Active Problems (Last Reviewed 09/13/18 @ 15:56 by Faye Alston MD) Urolithiasis (Acute) Urinary tract infection (Acute) Acute kidney injury (Acute) Pancreatic abnormality (Acute) Nausea & vomiting (Acute) Hypercholesteremia (Acute) Overactive bladder (Acute) 1. RUQ likely secondary to kidney stone which patient has likely passed. Pain is resolved 2. Abnormal CT finding of pancreatic mass, MRCP suggestive of multiple scattered pancreatic cysts with some of them appearing to communicate with the main pancreatic duct. Patient was asked to follow-up with her PCP. 3. Hypertension, controlled, continue on home meds 4. Depression, on Prozac Code Visit Inpatient E&M: 33953 Subs Hosp L2
[2018-09-14] MEDS: LORazepam 2 MG/ML Syringe 1 MG IV (07:57)
[2018-09-14] MEDS: 0.9% NaCl Peripheral Flush Adult/Peds IV (07:57)
[2018-09-14 07:59] VITALS: BP 145/69; PULSE 76; RESP 16; TEMP 36.9; O2SAT 97
[2018-09-14 08:58] LABS: Anion Gap 5 (5-15); BUN 13 mg/dL (7-18); BUN/Creat Ratio 10.9 RATIO (10-20); Calcium,Total 7.9 mg/dL (8.5-10.1); Chloride 111 mmol/L (98-107); Creatinine, Serum 1.19 mg/dL (0.55-1.02); EST Glomerular Filtration Rate 48 mL/min (>60); Est Glom Filt Rate - Afr Amer 59 mL/min (>60); Estimated Creatinine Clearance 49.91 ml/min; Glucose 120 mg/dL (74-106); Potassium 4.2 mmol/L (3.5-5.1); Sodium Level 141 mmol/L (136-145)
[2018-09-14] MEDS: Ceftriaxone 1 GM/50 ML BAG IV (09:38)
--- NOTE | 2018-09-14 09:38 | PCM.PN.GU ---
Physical Exam Subjective: She is feeling much better today, almost the difference between night and day. She has no further nausea no further pain. She did not notice passing a stone but has been voiding much more than yesterday and did missed the hat with at least 2 voids. She is comfortable being discharged home today and she will follow-up hopefully with Dr. Khalil for further evaluation, work-up and any possible coordination of care for her pancreatic findings. - Physical Exam Vital Signs Temp 98.5 F 09/14/18 07:59 Pulse 76 09/14/18 07:59 Resp 16 09/14/18 07:59 BP 145/69 H 09/14/18 07:59 Pulse Ox 97 09/14/18 07:59 Intake & Output 09/12/18 09/13/18 09/14/18 23:59 23:59 23:59 Intake Total 1789 / 2610 1576 / 1576 Output Total 450 / 1000 1750 / 1750 Balance 1339 / 1610 -174 / -174 Weight: 126.8 kg 110.7 kg Intake: Oral 20 / 20 IV fluid/meds 1789 / 2590 1556 / 1556 Output: Urine 450 / 1000 1750 / 1750 General: Alert, Oriented x3, Cooperative, No apparent distress HEENT: Atraumatic, Normocephalic Oral: Moist Mucosa Neck: Supple, Trachea Midline Lungs: Normal air movement Cardiovascular: Regular rate Abdomen: Soft, Non Tender, Non-Distended Rectal: Exam deferred Skin: No rashes Musculoskeletal: No Tenderness to Palpation of Joints or Extremities Neurological: Cranial nerves II-XII grossly intact Psych/Mental Status: Normal Affect Laboratory Tests Past 24 Hrs 09/12/18 09/14/18 23:25 08:05 Sodium 141 Potassium 4.2 Chloride 111 H Carbon Dioxide 25.0 Anion Gap 5 BUN 13 Creatinine 1.19 H Estim Creat Clear Calc 49.91 Est GFR (MDRD) Af Amer 59 L Est GFR (MDRD) Non-Af 48 L BUN/Creatinine Ratio 10.9 Glucose 120 H Calcium 7.9 L Total Bilirubin 0.50 Direct Bilirubin 0.13 AST 15 ALT 21 Alkaline Phosphatase 108 Total Protein 6.8 Albumin 3.5 Globulin 3.3 Amylase 39 Lipase 245 Medical Necessity - Tobacco Use Smoking Status: Never smoker Assessment/Plan All Active Problems (Last Reviewed 09/13/18 @ 15:56 by Faye Alston MD) Urolithiasis (Acute) Urinary tract infection (Acute) Acute kidney injury (Acute) Pancreatic abnormality (Acute) Nausea & vomiting (Acute) Hypercholesteremia (Acute) Overactive bladder (Acute) Regular diet. Plan for discharge sometime today after MRCP results are posted and arrangement for coordination of care has been completed. I will see her in the office in approximately 2 to 3 weeks and we can further evaluate her urolithiasis with a 24-hour urine collection to be done as an outpatient. Appreciate help of all consultants.
[2018-09-14] MEDS: Losartan Potassium 50 MG Tablet PO (09:39)
[2018-09-14] MEDS: Tolterodine Tartrate 4 MG CAP.SA PO (09:39)
[2018-09-14] MEDS: hydroCHLOROthiazide 12.5mg 12.5 MG PO (09:39)
[2018-09-14 09:40] VITALS: PULSE 76
[2018-09-14] MEDS: Metoprolol(XL)Succ 100 MG Tablet PO (09:40)
[2018-09-14] MEDS: FLUoxetine 20 MG Capsule PO (09:40)
--- NOTE | 2018-09-14 09:43 | DCINST_ITS ---
Discharge Diet: No Restrictions Discharge Activity: Return to Normal Activity Call your doctor if you observe: Fever of 101 or Higher, Inability to urinate, Shortness of breath, Chest pain, Calf discomfort, Uncontrolled pain Allergies/Adverse Reactions: Allergies clarithromycin [From Biaxin] Allergy (Verified 09/12/18 22:36) Hives Sulfa (Sulfonamide Antibiotics) Allergy (Verified 09/12/18 22:36) Hives Medications to take at Discharge Fluoxetine HCl [Prozac] 20 mg PO DAILY 09/12/18 Losartan/Hydrochlorothiazide [Losartan-Hctz 50-12.5 mg Tab] 1 ea PO DAILY 09/12/18 Metoprolol Succinate [Toprol Xl] 100 mg PO DAILY 09/12/18 Oxybutynin Chloride [Ditropan Xl] 10 mg PO DAILY 09/12/18 Primary Care Physician: Erickson Khalil MD [Primary Care Provider] - Test Results: Test results from this visit will be discussed in further detail at your follow- up appointment, if applicable. Please Follow Up With: Faye Alston MD When: call for appt to be seen in 2-3 weeks. Proposed Discharge Date: 09/14/18
[2018-09-14 11:43] VITALS: BP 111/55; PULSE 73; RESP 16; TEMP 36.4; O2SAT 100
== END 2018-09-14 12:11 | disposition home or self-care (01) | DRG 690 ==
LOC: ED 09-13 01:26 → MS3 09-13 01:26
PROVIDERS: Admitting Provider Urology; Emergency Provider Emergency Medicine; Visit Provider Internal Medicine
DX: N13.6 Pyonephrosis (principal); K86.2 Cyst of pancreas; N17.9 Acute kidney failure, unspecified; N20.0 Calculus of kidney; I10 Essential (primary) hypertension; F32.9 Major depressive disorder, single episode, unspecified; N32.81 Overactive bladder
CPT/HCPCS: 36415; 74176; 74181; 80048; 80076; 81002; 82150; 83690; 85025; 87086; 87088; 99284; J7030; A4216; J2405; J7799

== ENCOUNTER 2019-01-10 18:22 | Observation (INO) | payer MEDICARE, SELFPAY ==
[2018-09-13 01:55] VITALS: BMI 36.0
[2019-01-10 18:23] VITALS: BP 162/94; PULSE 60; RESP 17; TEMP 37; O2SAT 99; BMI 40.6
[2019-01-10] MEDS: Ondansetron 4 MG/2 ML Vial IV (19:04)
[2019-01-10] MEDS: Morphine 4 MG/ML Syringe IV (19:04)
[2019-01-10 19:14] LABS: Absolute Lymphocyte Count 1.78 X10^3/uL (0.83-4.51); Absolute Neutrophil Count 5.7 X10^3/uL (2.0-7.7); Basophil# 0.05 X10^3/uL; Basophil% 0.6 % (0-1); Eosinophil# 0.36 X10^3/uL; Eosinophils% 4.2 % (0-5); Hematocrit 42.8 % (37-47); Hemoglobin 14.3 g/dL (12.0-15.0); Lymphocyte # 1.78 X10^3/ul (4.0); Lymphocyte % 20.9 % (19-41); Mean Corp Hgb Conc 33.4 g/dL (32-36); Mean Corpuscular Hgb 29.9 pg (27.0-32.0); Mean Corpuscular Volume 89.4 fL (81-99); Mean Platelet Vol. 9.7 fl (6.2-12.0); Monocyte# 0.59 X10^3/uL; Monocyte% 6.9 % (0-10); NRBC Flagged by Analyzer 0 % (0-5); Neutrophil # 5.68 X10^3/uL (2.7-7.7); Neutrophil % 66.9 % (47-70); Platelet Count 290 K/mm3 (150-450); RBC Distribution Width CV 14.1 % (11.6-14.6); RBC Distribution Width SD 45.6 fl (35.1-43.9); Red Blood Count 4.79 M/mm3 (4.2-5.4); White Blood Count 8.5 K/mm3 (4.4-11.0)
--- NOTE | 2019-01-10 19:20 | ED.DCSUM_ITS ---
- ER Visit Summary Date of Service: 01/10/19 Chief Complaint: Left flank pain, nausea and vomiting History of Present Illness: The patient is a 63 F who has left flank pain and nausea and vomiting. It started today. She has a sharp pain in her left flank. It radiates forward. Nothing makes it better or worse. She has had vomiting today. She denies diarrhea or constipation. She has not seen any blood in her urine. Her output of urine has decreased today. She does have a history of kidney stones on the right-hand side with the last episode being in September. They did note that there was a stone in the left side at that time. She took a Percocet at home without any relief. Physical Examination: Vital signs reviewed. HEENT exam unremarkable. Heart is regular rate and rhythm without murmurs. Lungs are clear to auscultation. Abdomen is soft and nontender. Extremities reveal no edema. Skin exam normal. Neurologic exam normal. Test Results: Laboratory studies show normal white blood cell count. Creatinine 1.37. Urinalysis has 2+ leukocytes and 25-50 white blood cells. 0-5 red blood cells. CAT scan reveals a left UVJ kidney stone in the ureter. Emergency Department Course and Treatment: Patient received morphine, Zofran, saline, Toradol. She was still having some pain. I started her on IV Rocephin. I discussed this with Dr. Alston. She states that if the patient's pain is not controlled she would admit the patient for pain control overnight. I discussed with the patient she would feel more comfortable spending the night. She will be admitted observation on the medical floor Treatment Plan: [] Disposition: Admit observation Impression: Infected kidney stone This note was generated with [employer] dictation software. It may contain incorrect words, spelling, and punctuation that were not noted in review of the chart prior to signing ED Disposition - Plan for ED Patient: Referrals: Erickson Khalil MD [Primary Care Provider] -
[2019-01-10 19:28] LABS: Anion Gap 8 (5-15); BUN 22 mg/dL (7-18); BUN/Creat Ratio 16.1 RATIO (10-20); Calcium,Total 8.5 mg/dL (8.5-10.1); Chloride 109 mmol/L (98-107); Creatinine, Serum 1.37 mg/dL (0.55-1.02); EST Glomerular Filtration Rate 41 mL/min (>60); Est Glom Filt Rate - Afr Amer 50 mL/min (>60); Estimated Creatinine Clearance 42.78 ml/min; Glucose 120 mg/dL (74-106); Potassium 3.9 mmol/L (3.5-5.1); Sodium Level 140 mmol/L (136-145)
[2019-01-10] MEDS: 0.9% Normal Saline 1,000 ML 250 ML IV (19:42)
[2019-01-10 19:43] VITALS: RESP 16
[2019-01-10 19:51] LABS: Mucous, Urine 0 SEEN /hpf (<or=2+)
[2019-01-10] MEDS: proMETHazine 25 MG/ML Syringe 12.5 MG IV (20:05)
[2019-01-10] MEDS: Ketorolac 30 MG/ML Syringe IV (20:06)
[2019-01-10 20:34] LABS: Color, Urine Yellow (Yellow); Glucose, Dipstick Normal (Normal); Ketone-Dipstick Negative (Negative); Leukocyte Esterase-Dipstick 500 /ul (Negative); Nitrite-Dipstick Negative (Negative); Occult Blood-Urine 10 /ul (Negative); Protein-Dipstick Negative (Negative); Urine Bilirubin Dipstick Negative (Negative); Urine Clarity Sl. Cloudy (Clear); Urine Urobilinogen Normal (Normal)
[2019-01-10 20:41] LABS: Red Blood Cells-Urine 0-5 SEEN /hpf (0-5); White Blood Cells 25-50 SEEN /hpf (0-5)
[2019-01-10 20:42] LABS: Bacteria RARE /hpf (None Seen); Squamous Epithelial Cells - UA 5-10 SEEN /hpf (5-10)
--- NOTE | 2019-01-10 21:09 | CT_ITS ---
STUDY: CT ABDOMEN AND PELVIS WITHOUT CONTRAST REASON FOR EXAM: Female, 63 years old. Left flank pain RADIATION DOSAGE (If Supplied By Facility): CTDIvol = ( 024.14 ) mGy, DLP = ( 1254.54 ) mGycm TECHNIQUE: Transaxial images were obtained from the dome of the diaphragm to the symphysis pubis without oral contrast, and without intravenous contrast. Sagittal and coronal images were reconstructed. Individualized dose optimization techniques were used for this CT. COMPARISON: September 12, 2018 FINDINGS: The visualized lung bases are unremarkable. The visualized portions of the heart are within normal limits. Normal liver. No visualization of the gallbladder. No significant dilatation of the extrahepatic biliary system. Normal spleen. 2.3 cm in the possible cystic nodule at the head of the pancreas is again noted. Normal bilateral adrenal glands. Possible parapelvic cysts in the right kidney. Hydronephrosis and perinephric stranding of the left kidney. Mild left hydroureter. Normal visualized stomach. Normal small intestine. Mild diverticulosis of the colon. The appendix is nonvisualized. Mildly calcified abdominal aorta. Normal inferior vena cava. Normal retroperitoneum. A 2 mm stone is suspected at the intramural segment of the left UVJ in the urinary bladder. Small fatty umbilical hernia. Mild degenerative changes. Degenerative changes at the hips, right lung and left. CT/Abdomen/Pelvis without Cont IMPRESSION: Relatively stable cystic nodule at the head of the pancreas. Left hydronephrosis with mild left hydroureter. An obstructive stone is noted at the left UVJ. Probable parapelvic right renal cysts. Mild colonic diverticulosis. Small fatty umbilical hernia. Electronically Signed: Aris Benavides DO at 21:53 EST Tel [phone], Service support ,
[2019-01-10 21:41] VITALS: BP 125/71; PULSE 68; RESP 14; O2SAT 100
[2019-01-10] MEDS: Ceftriaxone 1 GM/50 ML BAG IV (22:20)
[2019-01-10 23:45] VITALS: BP 120/62; PULSE 65; RESP 16; TEMP 36.7; O2SAT 100
[2019-01-10 23:51] VITALS: BMI 39.9; BMI 40.6
[2019-01-11] VITALS (7 sets, daily range): BP systolic 95–100; BP diastolic 41–53; PULSE 59–73; RESP 14–18; TEMP 36.4–36.6; O2SAT 97–99
[2019-01-11] MEDS: Tamsulosin HCl 0.4 MG Capsule PO ×2 (01:55→16:38)
[2019-01-11] MEDS: proMETHazine 25 MG/ML Syringe 12.5 MG IV (01:55)
[2019-01-11] MEDS: 0.45% Normal Saline 1,000 ML 125 ML IV ×3 (01:55→16:41)
[2019-01-11] MEDS: Morphine 4 MG/ML Syringe IV (01:56)
[2019-01-11] MEDS: 0.9% Saline Lock 10 ML Syringe IV (01:57)
[2019-01-11] MEDS: Tolterodine Tartrate 2 MG CAP.SA PO (08:19)
[2019-01-11] MEDS: FLUoxetine 20 MG Capsule PO (08:20)
[2019-01-11] MEDS: hydroCHLOROthiazide 12.5mg 12.5 MG PO (08:20)
--- NOTE | 2019-01-11 13:47 | HP.PCM_ITS ---
Problem List (1) Ureteral calculus Status: Acute (2) Urinary tract infection Status: Acute (3) Nausea & vomiting Status: Acute History of Present Illness Date of Admission: 01/11/19 Chief Complaint: intractable left flank pain with nausea and vomiting The patient is a 63 year old F with history of kidney stones. Developed acute onset left flank pain 2 days ago. Yesterday started with nausea and vomiting and uncontrolled pain. The pain is much worse than with her last ureteral stone. Still having pain after fluids and narcotics, toradol. No fever or chills. Past Medical History Past Medical History (Chronic Problems): Chronic Problems (Last Reviewed 01/11/19 @ 13:49 by Faey Alston MD) Hypertension (Chronic) Medical History: Medical History (Last Reviewed 01/11/19 @ 13:49 by Faye Alston MD) Hypercholesteremia (Acute) E78.00 Overactive bladder (Acute) N32.81 Hypertension (Chronic) I10 Allergies clarithromycin [From Biaxin] Allergy (Verified 01/10/19 18:23) Hives Sulfa (Sulfonamide Antibiotics) Allergy (Verified 01/10/19 18:23) Hives Home Medications: Ambulatory Orders Medication Instructions Recorded Fluoxetine HCl [Prozac] 20 mg PO DAILY 09/12/18 Metoprolol Succinate [Toprol Xl] 100 mg PO DAILY 09/12/18 Oxybutynin Chloride [Ditropan Xl] 10 mg PO DAILY 09/12/18 Valsartan/Hydrochlorothiazide 1 ea PO DAILY 01/11/19 [Valsartan-Hctz 80-12.5 mg Tab] Surgical History: appendectomy, cholecystectomy, hysterectomy, total knee arthroplasty, - - wrist surgery [employer]ER History: - - no history cancers Smoking Status: Never smoker Tobacco Use: Non-smoker Review of Systems Constitutional: Denies: Chills, Fever Eyes: Denies: Vision Change HEENT: Denies: Hard of Hearing Cardiovascular: Denies: Chest Pain Respiratory: Denies: Shortness of Breath Gastrointestinal: Reports: Abdominal Pain, Nausea, Vomiting, - - left back pain Genitourinary: Reports: Dysuria, Frequency, Urgency Musculoskeletal: Denies: Muscle pain Skin: Denies: Wounds Neurological: Denies: Confusion Endocrine: Denies: Change in Body Habitus VTE Information - Inpt Only VTE Present on Admission: Yes VTE Mechan Device Prophylaxis: SCD's VTE Pharm Prophylaxis ordered?: Yes Patient Problems: Active and Suspected Problems (Last Reviewed 01/11/19 @ 13:49 by Faye Alston MD) Ureteral calculus (Acute) - Physical Exam Vitals/I&O's: Vital Signs Temp Pulse Resp BP Pulse Ox 97.5 F L 59 L 14 100/53 L 98 01/11/19 10:51 01/11/19 10:51 01/11/19 12:24 01/11/19 10:51 01/11/19 10:51 Oxygen Delivery Method Room Air Weight: 122.47 kg Body Mass Index (BMI) 39.9 Intake and Output for Last 24 Hours 01/09/19 01/10/19 01/11/19 23:59 23:59 23:59 Intake Total 50 / 50 2162.50 / 2162.50 Output Total 300 / 300 Balance 50 / 50 1862.50 / 1862.50 General: Alert, Oriented x3, Cooperative, No apparent distress HEENT: Atraumatic, Normocephalic Oral: Dry Mucosa Neck: Trachea Midline Lungs: Normal air movement Cardiovascular: Regular rate Abdomen: Soft, Tender - left flank, - Extremities: No Calf Tenderness Skin: - - inguinal and skin fold yeast infection Neurological: Cranial nerves II-XII grossly intact Laboratory Results 01/10/19 18:45: WBC 8.5, RBC 4.79, Hgb 14.3, Hct 42.8, MCV 89.4, MCH 29.9, MCHC 33.4, RDW Std Deviation 45.6 H, RDW Coeff of Matheus 14.1, Plt Count 290, MPV 9.7, Immature Gran % (Auto) 0.500, Neut % (Auto) 66.9, Lymph % (Auto) 20.9, Shelby % (Auto) 6.9, Eos % (Auto) 4.2, Baso % (Auto) 0.6, Absolute Neuts (auto) 5.7, Absolute Lymphs (auto) 1.78, Nucleated RBC % 0 01/10/19 18:45: Sodium 140, Potassium 3.9, Chloride 109 H, Carbon Dioxide 23.0, Anion Gap 8, BUN 22 H, Creatinine 1.37 H, Estim Creat Clear Calc 42.78, Est GFR (MDRD) Af Amer 50 L, Est GFR (MDRD) Non-Af 41 L, BUN/Creatinine Ratio 16.1, Glucose 120 H, Calcium 8.5 01/10/19 19:45: Urine Color Yellow, Urine Clarity Sl. Cloudy, Urine pH 5.0, Ur Specific Crane 1.020, Urine Protein Negative, Urine Glucose (UA) Normal, Urine Ketones Negative, Urine Occult Blood 10 H, Urine Nitrite Negative, Urine Bilirubin Negative, Urine Urobilinogen Normal, Ur Leukocyte Esterase 500 H, Urine RBC 0-5 SEEN, Urine WBC 25-50 SEEN, Ur Squamous Epith Cells 5-10 SEEN, Urine Bacteria RARE, Urine Mucus 0 SEEN Current Medications Fluoxetine HCl (Prozac) 20 mg PO DAILY [facility] Last Admin: 01/11/19 08:20 Dose: 20 mg Documented by: Hydrochlorothiazide () 12.5 mg PO DAILY [facility] Last Admin: 01/11/19 08:20 Dose: 12.5 mg Documented by: Sodium Chloride () 1,000 mls @ 125 mls/hr IV .Q8H [facility] Last Admin: 01/11/19 09:37 Dose: 125 mls/hr Documented by: Losartan Potassium (Cozaar) 50 mg PO DAILY [facility] Metoprolol Succinate (Toprol Xl (Beta Danni)) 100 mg PO DAILY [facility] Morphine Sulfate () 2 mg IV Q3H PRN PRN PRN Reason: Pain Score 1-5/10 Morphine Sulfate () 4 mg IV Q3H PRN PRN PRN Reason: Pain SCORE 5-10/10 Last Admin: 01/11/19 01:56 Dose: 4 mg Documented by: Nystatin (Mycostatin Powder) 1 applic TOPICAL TID [facility]; Protocol Promethazine HCl (Phenergan) 12.5 mg IV Q6H PRN PRN PRN Reason: NAUSEA/VOMITING Last Admin: 01/11/19 01:55 Dose: 12.5 mg Documented by: Sodium Chloride () 10 - 40 ml IV UD PRN PRN Reason: SALINE FLUSH Last Admin: 01/11/19 01:57 Dose: 10 ml Documented by: Tamsulosin HCl (Flomax) 0.4 mg PO DAILY@1730 [facility] Last Admin: 01/11/19 01:55 Dose: 0.4 mg Documented by: Tolterodine Tartrate (Detrol La) 2 mg PO DAILY [facility] Last Admin: 01/11/19 08:19 Dose: 2 mg Documented by: Assessment/Plan All Active Problems (Last Reviewed 01/11/19 @ 13:49 by Faye Alston MD) Urolithiasis (Acute) Urinary tract infection (Acute) Acute kidney injury (Acute) Pancreatic abnormality (Acute) Nausea & vomiting (Acute) Ureteral calculus (Acute) Hypercholesteremia (Acute) Overactive bladder (Acute) left ureteral calculus, urinary tract infection with pain, nausea and vomiting. fluids, pain control, flomax and antibiotics await culture results.
[2019-01-11] MEDS: Nystatin Powder 15gm Bottle 1 APPLIC TOPICAL ×2 (14:09→21:06)
[2019-01-11] MEDS: Cephalexin 500 MG Capsule PO ×2 (15:34→21:06)
[2019-01-12] MEDS: 0.45% Normal Saline 1,000 ML 125 ML IV (00:49)
[2019-01-12 02:00] VITALS: BP 135/69; PULSE 74; RESP 18; TEMP 36.4; O2SAT 99
[2019-01-12] MEDS: Cephalexin 500 MG Capsule PO (05:49)
[2019-01-12] MEDS: Nystatin Powder 15gm Bottle 1 APPLIC TOPICAL (05:49)
[2019-01-12 07:35] VITALS: BP 115/59; PULSE 64; RESP 16; TEMP 36.4; O2SAT 98
[2019-01-12 07:47] LABS: Absolute Lymphocyte Count 0.88 X10^3/uL (0.83-4.51); Absolute Neutrophil Count 2.5 X10^3/uL (2.0-7.7); Basophil# 0.03 X10^3/uL; Basophil% 0.8 % (0-1); Eosinophil# 0.18 X10^3/uL; Eosinophils% 4.6 % (0-5); Hematocrit 35.2 % (37-47); Hemoglobin 11.5 g/dL (12.0-15.0); Lymphocyte # 0.88 X10^3/ul (4.0); Lymphocyte % 22.4 % (19-41); Mean Corp Hgb Conc 32.7 g/dL (32-36); Mean Corpuscular Hgb 29.9 pg (27.0-32.0); Mean Corpuscular Volume 91.4 fL (81-99); Mean Platelet Vol. 9.5 fl (6.2-12.0); Monocyte% 7.6 % (0-10); NRBC Flagged by Analyzer 0 % (0-5); Neutrophil # 2.53 X10^3/uL (2.7-7.7); Neutrophil % 64.3 % (47-70); Platelet Count 168 K/mm3 (150-450); RBC Distribution Width CV 14.2 % (11.6-14.6); RBC Distribution Width SD 46.9 fl (35.1-43.9); Red Blood Count 3.85 M/mm3 (4.2-5.4); White Blood Count 3.9 K/mm3 (4.4-11.0)
[2019-01-12 08:14] LABS: Anion Gap 3 (5-15); BUN 19 mg/dL (7-18); BUN/Creat Ratio 18.4 RATIO (10-20); Calcium,Total 7.9 mg/dL (8.5-10.1); Chloride 112 mmol/L (98-107); Creatinine, Serum 1.03 mg/dL (0.55-1.02); EST Glomerular Filtration Rate 57 mL/min (>60); Est Glom Filt Rate - Afr Amer 69 mL/min (>60); Estimated Creatinine Clearance 56.91 ml/min; Glucose 107 mg/dL (74-106); Potassium 3.8 mmol/L (3.5-5.1); Sodium Level 141 mmol/L (136-145)
--- NOTE | 2019-01-12 08:31 | DCINST_ITS ---
Discharge Diet: No Restrictions Discharge Activity: Return to Normal Activity, No Restrictions May resume sexual activity in: No Restrictions Call your doctor if you observe: Fever of 101 or Higher, Inability to urinate, Inability to have a bowel movement, Calf discomfort, Uncontrolled pain Allergies/Adverse Reactions: Allergies clarithromycin [From Biaxin] Allergy (Verified 01/10/19 18:23) Hives Sulfa (Sulfonamide Antibiotics) Allergy (Verified 01/10/19 18:23) Hives Medications to take at Discharge Fluoxetine HCl [Prozac] 20 mg PO DAILY 09/12/18 Metoprolol Succinate [Toprol Xl] 100 mg PO DAILY 09/12/18 Oxybutynin Chloride [Ditropan Xl] 10 mg PO DAILY 09/12/18 Valsartan/Hydrochlorothiazide [Valsartan-Hctz 80-12.5 mg Tab] 1 ea PO DAILY 01/11/19 Cephalexin [Keflex] 500 mg PO TID #12 cap 01/12/19 Nystatin Powder [Mycostatin Powder] 1 applic TOPICAL BID #1 bottle 01/12/19 The following prescriptions were given: Cephalexin [Keflex] 500 mg PO TID #12 cap Prescription Printed Nystatin Powder [Mycostatin Powder] 1 applic TOPICAL BID #1 bottle Prescription Printed Primary Care Physician: Erickson Khalil MD [Primary Care Provider] - Test Results: Test results from this visit will be discussed in further detail at your follow- up appointment, if applicable. Please Follow Up With: Faye Alston MD When: 1-2 weeks, call for appt Proposed Discharge Date: 01/12/19
[2019-01-23 16:50] LABS: Comment Note: (.)
== END 2019-01-12 11:05 | disposition home or self-care (01) ==
LOC: ED 19:13 → MS3 22:49
PROVIDERS: Admitting Provider Urology; Emergency Provider Emergency Medicine; Referring Provider Urology; Visit Provider Urology
DX: N20.1 Calculus of ureter (principal); N39.0 Urinary tract infection, site not specified; Z87.442 Personal history of urinary calculi; I10 Essential (primary) hypertension; Z79.899 Other long term (current) drug therapy; E78.00 Pure hypercholesterolemia, unspecified; N32.81 Overactive bladder; N17.9 Acute kidney failure, unspecified
CPT/HCPCS: 36415; 74176; 80048; 81001; 82360; 85025; 96361; 96365; 96375; 96376; 99218; 99284; J7030; A4216; G0378; J2405

== ENCOUNTER → 2021-06-29 | Outpatient (CLI) | payer MEDICARE, SELFPAY ==
[2021-06-29 13:32] LABS: Hepatitis B Surface Antibody Non-Reactive; Hepatitis B Surface Antigen Non-Reactive (Nonreactive); Hepatitis C Antibody Non-Reactive (Nonreactive)
[2021-07-02 16:09] LABS: QNTFERON TB Mitogen Value > 10.00 IU/mL (.); QNTFERON TB Nil Value 0.02 IU/mL (.); QNTFERON TB1+ Ag Value 0.02 IU/mL (.); QNTFERON TB2+ Ag Value 0.02 IU/mL (.)
[2021-07-02 16:38] LABS: Hepatitis B Core Ab Total Negative (Negative); QNTIFERON TB Positive Criteria Negative (Negative)
== END | disposition home or self-care (01) ==
LOC: MTLAB 09:09
PROVIDERS: Referring Provider Physician Assistant Medical; Visit Provider Physician Assistant Medical
DX: L40.8 Other psoriasis (principal); L24.9 Irritant contact dermatitis, unspecified cause; M12.9 Arthropathy, unspecified; Z79.899 Other long term (current) drug therapy
CPT/HCPCS: 36415; 86480; 86704; 86706; 86803; 87340

== ENCOUNTER → 2022-11-15 | Outpatient (CLI) | payer MEDICARE, SELFPAY ==
[2022-11-17 10:09] LABS: QNTFERON TB Mitogen Value > 10.00 IU/mL (.); QNTFERON TB Nil Value 0.05 IU/mL (.); QNTFERON TB1+ Ag Value 0.08 IU/mL (.); QNTFERON TB2+ Ag Value 0.06 IU/mL (.); QNTIFERON TB Positive Criteria Negative (Negative)
== END | disposition home or self-care (01) ==
LOC: MTLAB 09:00
PROVIDERS: PCP Internal Medicine; Referring Provider Physician Assistant Medical; Visit Provider Physician Assistant Medical
DX: L40.8 Other psoriasis (principal); Z79.899 Other long term (current) drug therapy
CPT/HCPCS: 36415; 86480

== ENCOUNTER → 2024-01-16 | Outpatient (CLI) | payer MEDICARE, SELFPAY ==
[2024-01-22 09:22] LABS: QNTFERON TB Mitogen Value > 10.00 IU/mL (.); QNTFERON TB Nil Value 0 IU/mL (.); QNTFERON TB1+ Ag Value 0.03 IU/mL (.); QNTFERON TB2+ Ag Value 0.02 IU/mL (.); QNTIFERON TB Positive Criteria Negative (Negative)
== END | disposition home or self-care (01) ==
LOC: MTLAB 11:09
PROVIDERS: PCP Internal Medicine; Referring Provider Physician Assistant Medical; Visit Provider Physician Assistant Medical
DX: L40.0 Psoriasis vulgaris (principal); D48.5 Neoplasm of uncertain behavior of skin; Z79.899 Other long term (current) drug therapy
CPT/HCPCS: 36415; 86480

== ENCOUNTER → 2024-11-22 | Outpatient (CLI) | payer MEDICARE, SELFPAY ==
[2024-11-26 20:08] LABS: QNTFERON TB Mitogen Value > 10.00 IU/mL (.); QNTFERON TB Nil Value 0.05 IU/mL (.); QNTFERON TB1+ Ag Value 0.12 IU/mL (.); QNTFERON TB2+ Ag Value 0.09 IU/mL (.); QNTIFERON TB Positive Criteria Negative (Negative)
== END | disposition home or self-care (01) ==
PROVIDERS: PCP Internal Medicine; Referring Provider Physician Assistant Medical; Visit Provider Physician Assistant Medical
DX: L40.0 Psoriasis vulgaris (principal)
CPT/HCPCS: 36415; 86480